=== PATIENT | female | born 1930 | race Caucasian/White ===

== ENCOUNTER 2016-08-28 02:19 | Inpatient (IN) | payer OTHER ==
--- NOTE | 2016-08-28 02:52 | PDOC ---
History of Present Illness - General History Source: Patient <Matteo Deluna - Last Filed: 08/28/16 06:11> - General History Source: Patient Exam Limitations: No Limitations - History of Present Illness Initial Comments: 08/28/16 03:03 The patient is a 85 year old female with significant past medical history of hypertension, bladder CA, and chronic back pain s/p epidural placement 1 week ago who presents to the ED with 2 days of increasing abdominal pain. Patient states her pain is related to her hernia on the right side. During dinner time yesterday, she had an episode of vomiting. Patient also has complaints of nausea , constipation and unable to tolerate liquids and food. Denies diarrhea. Patient reports she also feels pain radiating down her legs that is colicky and sharp in nature. The patient denies fever, chills, cough, SOB, chest pain, and palpitations. Allergies: NKDA Social History: No alcohol, tobacco, or drug use reported. Past Surgical History: hernia repair x2 PCP: Dr. Paco Duff <Sri Horta - Last Filed: 08/28/16 06:26> <Antelmo Fierro - Last Filed: 08/28/16 07:41> - General Chief Complaint: Nausea/Vomiting Stated Complaint: PAIN,VOMITING Time Seen by Provider: 08/28/16 02:32 Past History - Past Medical History Anemia: Yes (mediterrean anemia) Asthma: No Cancer: No Cardiac Disorders: Yes CVA: No COPD: No CHF: No Dementia: No Diabetes: No GI Disorders: No Disorders: Yes HTN: Yes Hypercholesterolemia: No Liver Disease: No Seizures: No Thyroid Disease: No - Surgical History Abdominal Surgery: Yes (HERNIA, bilateral) Appendectomy: No Cardiac Surgery: No Cholecystectomy: No Lung Surgery: No Neurologic Surgery: No Orthopedic Surgery: No - Psycho/Social/Smoking Cessation Hx Suicidal Ideation: No Smoking History: Never smoked Have you smoked in the past 12 months: No If you are a former smoker, when did you quit?: 1970 Hx Alcohol Use: No Drug/Substance Use Hx: No Substance Use Type: None Hx Substance Use Treatment: No <MikieMatteo - Last Filed: 08/28/16 06:11> <Sri Horta - Last Filed: 08/28/16 06:26> <Vaidm,Antelmo - Last Filed: 08/28/16 07:41> - Past Medical History Allergies/Adverse Reactions: Allergies Allergy/AdvReac Type Severity Reaction Status Date / Time No Known Drug Allergies Allergy Verified 08/28/16 02:37 Home Medications: Ambulatory Orders Losartan Potassium [Cozaar -] 50 mg PO DAILY #0 tablet 10/22/13 Metoprolol Succinate [Toprol XL -] 50 mg PO HS 08/14/14 Aspirin [Ecotrin] 81 mg PO DAILY 08/15/14 Furosemide [Lasix -] 20 mg PO DAILY 08/15/14 Review of Systems - Review of Systems Able to Perform ROS?: Yes Comments:: 08/28/16 03:04 CONSTITUTIONAL: +decreased appetite Absent: fever, chills, diaphoresis, generalized weakness, malaise HEENT: Absent: rhinorrhea, nasal congestion, throat pain, throat swelling, difficulty swallowing, mouth swelling, ear pain, eye pain, visual Changes CARDIOVASCULAR: Absent: chest pain, syncope, palpitations, irregular heart rate, lightheadedness , peripheral edema RESPIRATORY: Absent: cough, shortness of breath, dyspnea with exertion, orthopnea, wheezing, stridor, hemoptysis GASTROINTESTINAL: +abdominal pain, nausea, vomiting, constipation Absent: diarrhea, melena, hematochezia GENITOURINARY: Absent: dysuria, frequency, urgency, hesitancy, hematuria, flank pain, genital pain MUSCULOSKELETAL: +pain radiating down the legs Absent: arthralgia, joint swelling SKIN: Absent: rash, itching, pallor NEUROLOGIC: Absent: headache, focal weakness or paresthesias, dizziness, unsteady gait, seizure, mental status changes, bladder or bowel incontinence <Sri Horta - Last Filed: 08/28/16 06:26> *Physical Exam - Vital Signs Last Vital Signs Temp Pulse Resp BP Pulse Ox 97.4 F L 70 18 141/71 97 08/28/16 02:37 08/28/16 02:37 08/28/16 02:37 08/28/16 02:37 08/28/16 02:37 <Matteo Deluna - Last Filed: 08/28/16 06:11> - Vital Signs Last Vital Signs Temp Pulse Resp BP Pulse Ox 97.4 F L 70 18 141/71 97 08/28/16 02:37 08/28/16 02:37 08/28/16 02:37 08/28/16 02:37 08/28/16 02:37 - Physical Exam Comments: 08/28/16 03:04 GENERAL: Well developed, well nourished. Awake and alert. No acute distress. HEENT: Normocephalic, atraumatic. PERRLA, EOMI. No conjunctival pallor. Sclera are non- icteric. Moist mucous membranes. Oropharynx is clear. NECK: Supple. Full ROM. No JVD. Carotid pulses 2+ and symmetric, without bruits. No thyromegaly. No lymphadenopathy. CARDIOVASCULAR: Regular rate and rhythm. No murmurs, rubs, or gallops. Distal pulses are 2+ and symmetric. PULMONARY: No evidence of respiratory distress. Lungs clear to auscultation bilaterally. No wheezing, rales or rhonchi. ABDOMINAL: Slightly firm. Mild tenderness in the right lower quadrant. Distended. No rebound or guarding. + bowel sounds. MUSCULOSKELETAL: Normal range of motion at all joints. No bony deformities or tenderness. No CVA tenderness. EXTREMITIES: No cyanosis. No clubbing. No edema. No calf tenderness. SKIN: Warm and dry. Normal capillary refill. No rashes. No jaundice. NEUROLOGICAL: Alert, awake, appropriate. Cranial nerves 2-12 intact. Moving all extremities. No gross focal neurological deficits. PSYCHIATRIC: Cooperative. Good eye contact. Appropriate mood and affect. <Sri Horta - Last Filed: 08/28/16 06:26> - Vital Signs Last Vital Signs Temp Pulse Resp BP Pulse Ox 97.4 F L 60 18 105/58 97 08/28/16 02:37 08/28/16 06:32 08/28/16 06:32 08/28/16 06:32 08/28/16 06:32 <Antelmo Fierro - Last Filed: 08/28/16 07:41> Heart Score/ECG Review - ECG Impressions Comment:: 08/28/16 06:27 NSR @60bpm LBBB Abnormal ECG <Sri Horta - Last Filed: 08/28/16 06:26> ED Treatment Course - LABORATORY CBC & Chemistry Diagram: 08/28/16 03:11 08/28/16 03:11 <SinisterraMatteo - Last Filed: 08/28/16 06:11> - LABORATORY CBC & Chemistry Diagram: 08/28/16 03:11 08/28/16 03:11 - RADIOLOGY Radiograph Interpretation: 08/28/16 06:05 EXAM: CT abdomen and pelvis with contrast Reviewed by Imaging ham boner: IMPRESSION: Evaluation is limited due to paucity of intraabdominal and pelvic fat. Nonspecific fluid level seen within the small bowel. There is an apparent transition point in the left lower quadrant ( axial image 87. Air is seen in the colon. These findings may reflect partial small bowel traction.There is no pneumatosis intestinalis, wall thickening or portal venous gas. Diverticulosis. No evidence of diverticulitis. Multichamber cardiomegaly. Coronary calcifications. No pericardial effusion. Mitral annular and aortic valve calcifications. Right hepatic simple cyst. Nonspecific hepatosplenomegaly. Gallbladder is distended. No calcified gallstones visualized. Mild prominence of the common bile duct similar to prior study. Stable bilateral renal cysts. No enhancing renal mass. No hydronephrosis. Adrenal glands are unremarkable. Stable thoracolumbar S-shaped scoliosis. [id number] arthrosis of the spine. Chronic arthrosis of the SI joints and hip joints. Osteopenia. Stable mild compression deformity of T11 vertebral body. <Sri Horta - Last Filed: 08/28/16 06:26> - LABORATORY CBC & Chemistry Diagram: 08/28/16 03:11 08/28/16 03:11 - ADDITIONAL ORDERS Additional order review: Laboratory Results 08/28/16 08/28/16 08/28/16 04:28 03:11 03:11 INR Sodium 141 Potassium 3.8 Chloride 102 Carbon Dioxide 29 Anion Gap 10 BUN 42 H D Creatinine 0.8 D Creat Clearance w eGFR > 60 Random Glucose 106 D Calcium 9.3 Magnesium 2.6 H Total Bilirubin 1.0 D AST 23 D ALT 22 D Alkaline Phosphatase 108 D Total Protein 8.0 Albumin 4.3 Lipase 195 Urine Color Yellow Urine Appearance Clear Urine pH 5.0 D Ur Specific [place] 1.019 Urine Protein 1+ H Urine Glucose (UA) Negative Urine Ketones Trace H Urine Blood Negative Urine Nitrite Negative Urine Bilirubin Negative Urine Urobilinogen Negative Ur Leukocyte Esterase Negative Urine RBC 1 Urine WBC 1 Ur Epithelial Cells Rare Hyaline Casts 47 Urine Mucus Few Blood Type O POSITIVE Antibody Screen Negative 08/28/16 03:11 INR 1.09 Sodium Potassium Chloride Carbon Dioxide Anion Gap BUN Creatinine Creat Clearance w eGFR Random Glucose Calcium Magnesium Total Bilirubin AST ALT Alkaline Phosphatase Total Protein Albumin Lipase Urine Color Urine Appearance Urine pH Ur Specific [place] Urine Protein Urine Glucose (UA) Urine Ketones Urine Blood Urine Nitrite Urine Bilirubin Urine Urobilinogen Ur Leukocyte Esterase Urine RBC Urine WBC Ur Epithelial Cells Hyaline Casts Urine Mucus Blood Type Antibody Screen 08/28/16 03:11 RBC 4.30 MCV 68.0 L MCHC 30.8 L RDW 21.3 H D MPV 9.7 Neutrophils % 75.0 Lymphocytes % 10.0 D Monocytes % 11.0 H - Medications Given in the ED: ED Medications Discontinued Medications Generic Name Dose Route Start Last Admin Trade Name Cosmo PRN Reason Stop Dose Admin Morphine Sulfate 2 mg 08/28/16 02:57 08/28/16 03:12 Morphine Injection - IVPUSH 08/28/16 02:58 2 mg ONCE ONE Administration Ondansetron HCl 4 mg 08/28/16 02:57 08/28/16 03:12 Zofran Injection IVPUSH 08/28/16 02:58 4 mg ONCE STA Administration <Antelmo Fierro - Last Filed: 08/28/16 07:41> Medical Decision Making - Medical Decision Making 08/28/16 06:11 Dr. Deluna: The scribe's documentation has been prepared under my direction and personally reviewed by me in its entirery. I confirm that the note above accurately reflects all work, treatment, procedures, and medical decision making performed by me. Pt found to have an SBO on Ct scan. Pt not actively vomiting at this time. However, pt will have NGT placed to decompress stomach and be admitted to [facility]. Spoke to Dr. Duff will admitt <Matteo Deluna - Last Filed: 08/28/16 06:11> - Medical Decision Making 08/28/16 06:[address] Paco Duff (via answering service) at 6:07 and patient's case was discussed. <Sir Horta - Last Filed: 08/28/16 06:26> - Medical Decision Making 08/28/16 07:41 The pts post NGT xray reveals tip at the EG junction. The tube was advanced 10cm with output of bilious fluid. <Antelmo Fierro - Last Filed: 08/28/16 07:41> *DC/Admit/Observation/Transfer - Discharge Dispostion Admit: Yes <Matteo Deluna - Last Filed: 08/28/16 06:11> - Attestations Scribe Attestion: 08/28/16 03:04 Documentation prepared by Sri Horta, acting as medical and health services manager for Matteo Deluna MD <Sri Horta - Last Filed: 08/28/16 06:26> <Antelmo Fierro - Last Filed: 08/28/16 07:41> Diagnosis at time of Disposition: SBO (small bowel obstruction) - Referrals
[2016-08-28] MEDS ORDERED: ONDANSETRON 4 MG/2 ML VIAL IVPUSH STA (02:57)
[2016-08-28] MEDS ORDERED: morphine CARPU-JECT 2 MG/1 ML DISP.SYRIN IVPUSH ONE (02:57)
[2016-08-28] MEDS ORDERED: morphine CARPU-JECT 2 MG/1 ML DISP.SYRIN ONE (03:00)
[2016-08-28] MEDS ORDERED: ONDANSETRON 4 MG/2 ML VIAL ONE (03:00)
[2016-08-28 03:21] LABS: MCH 20.9 pg (25.7-33.7); MCHC 30.8 g/dl (32.0-36.0); MEAN PLT VOLUME 9.7 fl (7.5-11.1); PLATELET COUNT 283 K/MM3 (134-434); RDW 21.3 % (11.6-15.6); WHITE BLOOD COUNT 13.1 K/mm3 (4.0-10.0)
[2016-08-28] MEDS: SODIUM CHLORIDE 1,000 ML IV SCH ×2 (03:29→14:24)
[2016-08-28 03:36] LABS: INR 1.09 (0.82-1.09)
[2016-08-28 03:44] LABS: ALBUMIN 4.3 g/dl (3.4-5.0); ANION GAP 10 (8-16); CALCIUM 9.3 mg/dL (8.5-10.1); CO2 29 mmol/L (21-32); CREATININE 0.8 mg/dL (0.55-1.02); GLUCOSE,RANDOM 106 mg/dL (74-106); MAGNESIUM 2.6 mg/dL (1.8-2.4); SGOT/AST 23 U/L (15-37); SGPT/ALT 22 U/L (12-78)
[2016-08-28 03:45] LABS: ALK PHOS 108 U/L (45-117)
[2016-08-28 04:40] LABS: URINE APPEARANCE CLEAR; URINE BILIRUBIN NEGATIVE (NEGATIVE); URINE BLOOD NEGATIVE (NEGATIVE); URINE COLOR YELLOW; URINE GLUCOSE (UA) NEGATIVE (NEGATIVE); URINE KETONE TRACE (NEGATIVE); URINE LEUK ESTERASE NEGATIVE (NEGATIVE); URINE NITRITE NEGATIVE (NEGATIVE); URINE UROBILINOGEN NEGATIVE E.U./dl (0.2-1.0)
[2016-08-28 04:51] LABS: URINE PROTEIN 1+ (NEGATIVE)
[2016-08-28 04:55] LABS: URINE HYALINE CAST 47 /lpf; URINE MUCUS FEW; URINE RBC 1 /hpf (0-3); URINE WBC 1 /hpf (3-5)
[2016-08-28 05:22] LABS: ANISOCYTOSIS 2+; HYPOCHROMIA 2+; MICROCYTOSIS 1+; PLATELET ESTIMATE ADEQUATE (NORMAL); POIKILOCYTOSIS 1+; POLYCHROMASIA 1+; TARGET CELLS 2+; TEAR DROP CELLS 1+
[2016-08-28] MEDS ORDERED: LIDOCAINE HCL 2% JELLY 10 ML CARTRIDGE ONE (06:40)
[2016-08-28] MEDS ORDERED: morphine CARPU-JECT 2 MG/1 ML DISP.SYRIN IVPUSH PRN (07:19)
[2016-08-28] MEDS ORDERED: ONDANSETRON 4 MG/2 ML VIAL IVPB PRN (07:19)
[2016-08-28 08:18] VITALS: BMI 18.1
--- NOTE | 2016-08-28 10:06 | CONSULT ---
- Consultation REQUESTING PROVIDER: Mikie RENTERIA CONSULT REQUEST: We have been asked to surgically evaluate this patient for possible SBO PCP:Paco Duff HISTORY OF PRESENT ILLNESS:85 y/o female presented w/ 1 day of nausae and ? vomiting and absominal pain; shehas a h/o ? BIH repair in the past and a known right obturator hernia; NOC. PMHx: bladder ca ; hypertension PSHx: as above Home Medications Medication Instructions Recorded Losartan Potassium [Cozaar -] 50 mg PO DAILY #0 tablet 10/22/13 Metoprolol Succinate [Toprol XL -] 50 mg PO HS 08/14/14 Aspirin [Ecotrin] 81 mg PO DAILY 08/15/14 Furosemide [Lasix -] 20 mg PO DAILY 08/15/14 Allergies Allergy/AdvReac Type Severity Reaction Status Date / Time No Known Drug Allergies Allergy Verified 08/28/16 02:37 PHYSICAL EXAM: GENERAL: Awake, alert, and fully oriented, in no acute distress. HEAD: Normal with no signs of trauma. EYES:sclera anicteric, conjunctiva clear. NECK: Normal ROM, supple without lymphadenopathy, or masses. ABDOMEN: Soft, nontender, distended and tympanitic high pitched bowel sounds, no guarding, no rebound, no masses. No organomegaly. MUSCULOSKELETAL: Normal ROM at all joints. No bony deformities or tenderness. No CVA tenderness. UPPER EXTREMITIES: 2+ pulses, warm, well-perfused. No cyanosis. Cap refill <2 seconds. No peripheral edema. LOWER EXTREMITIES: 2+ pulses, warm, well-perfused. No calf tenderness. No peripheral edema. NEUROLOGICAL: Normal speech, gait not observed. PSYCH: Cooperative. Good eye contact. Appropriate mood and affect. SKIN: Warm, dry, normal turgor, no rashes or lesions noted. Vital Signs Temperature 97.8 F 08/28/16 08:00 Pulse Rate 72 08/28/16 08:00 Respiratory Rate 18 08/28/16 08:00 Blood Pressure 130/70 08/28/16 08:00 O2 Sat by Pulse Oximetry (%) 97 08/28/16 06:32 Lab Results WBC 13.1 K/mm3 (4.0-10.0) H D 08/28/16 03:11 RBC 4.30 M/mm3 (3.60-5.2) 08/28/16 03:11 Hgb 9.0 GM/dL (10.7-15.3) L 08/28/16 03:11 Hct 29.3 % (32.4-45.2) L 08/28/16 03:11 MCV 68.0 fl (80-96) L 08/28/16 03:11 MCHC 30.8 g/dl (32.0-36.0) L 08/28/16 03:11 RDW 21.3 % (11.6-15.6) H D 08/28/16 03:11 Plt Count 283 K/MM3 (134-434) D 08/28/16 03:11 Sodium 141 mmol/L (136-145) 08/28/16 03:11 Potassium 3.8 mmol/L (3.5-5.1) 08/28/16 03:11 Chloride 102 mmol/L (98-107) 08/28/16 03:11 Carbon Dioxide 29 mmol/L (21-32) 08/28/16 03:11 Anion Gap 10 (8-16) 08/28/16 03:11 BUN 42 mg/dL (7-18) H D 08/28/16 03:11 Creatinine 0.8 mg/dL (0.55-1.02) D 08/28/16 03:11 Random Glucose 106 mg/dL (74-106) D 08/28/16 03:11 Calcium 9.3 mg/dL (8.5-10.1) 08/28/16 03:11 Blood Type O POSITIVE 08/28/16 03:11 Antibody Screen Negative 08/28/16 03:11 INR 1.09 (0.82-1.09) 08/28/16 03:11 CT a/p: partial SBO pending official report IMP: SBO; partial PLAN: NPO/IVF/NGT; follow up flat and upright AXR 08/29/16. Kojo Marquez MD FACS Visit type - Case Type Case Type: ED Admission - Emergency Emergency Visit: Yes ED Registration Date: 08/28/16 Care time: The patient presented to the Emergency Department on the above date and was hospitalized for further evaluation of their emergent condition. - New patient This patient is new to me today: Yes Date on this admission: 08/28/16
[2016-08-28] MEDS: HEPARIN NA (PORCINE) 5,000 UNITS/ML 1ML VIAL SQ SCH ×2 (10:31→21:11)
--- NOTE | 2016-08-28 12:18 | EKG ---
Test Reason : Blood Pressure : / mmHG Vent. Rate : 060 BPM Atrial Rate : 060 BPM P-R Int : 206 ms QRS Dur : 134 ms QT Int : 452 ms P-R-T Axes : 069 -01 181 degrees QTc Int : 452 ms POOR DATA QUALITY, INTERPRETATION MAY BE ADVERSELY AFFECTED NORMAL SINUS RHYTHM LEFT BUNDLE BRANCH BLOCK ABNORMAL ECG WHEN COMPARED WITH ECG OF 15-AUG-2014 10:44, PREMATURE VENTRICULAR COMPLEXES ARE NO LONGER PRESENT QT HAS SHORTENED Confirmed by PAN WELSH MD ([id number]) on 08/28/2016 12:18:15 PM Referred By: Confirmed By:PAN WELSH MD
--- NOTE | 2016-08-28 14:33 | HP ---
PCP: Paco Duff CHIEF COMPLAINT: Abdominal pain HISTORY OF PRESENT ILLNESS: This is an 85-year-old woman who presented to the ER this morning complaining of abdominal pain that started two nights ago. The pain was located in the RLQ at the site of a hernia. She says she gets occasional pain associated with this hernia. This pain has been continuous and worsening. She thinks her last bowel movement was 4 days ago. She took a laxative and began vomiting. PAST MEDICAL HISTORY Hypertension Bladder cancer Chronic back pain PAST SURGICAL HISTORY Left inguinal hernia repair 2005 Right inguinal hernia repair 1995, 2005 Allergies No Known Drug Allergies Allergy (Verified 08/28/16 02:37) HOME MEDICATIONS 3 Medication Instructions Recorded Losartan Potassium [Cozaar -] 50 mg PO DAILY #0 tablet 10/22/13 Metoprolol Succinate [Toprol XL -] 50 mg PO HS 08/14/14 Aspirin [Ecotrin] 81 mg PO DAILY 08/15/14 Furosemide [Lasix -] 20 mg PO DAILY 08/15/14 Social History: Smoking: Never smoked Alcohol: Denies Drugs: Denies Recent Travel: No Family History: Non-contributory REVIEW OF SYSTEMS CONSTITUTIONAL: Present: chills. Absent: fever, diaphoresis, generalized weakness, malaise, loss of appetite, weight change HEENT: Absent: rhinorrhea, nasal congestion, throat pain, throat swelling, difficulty swallowing, mouth swelling, ear pain, eye pain, visual changes CARDIOVASCULAR: Absent: chest pain, syncope, palpitations, lightheadedness, peripheral edema RESPIRATORY: Absent: cough, shortness of breath, dyspnea with exertion, orthopnea, wheezing, stridor, hemoptysis GASTROINTESTINAL: Present: abdominal pain, abdominal distention, nausea, vomiting, constipation. Absent: diarrhea, melena, hematochezia GENITOURINARY: Absent: dysuria, frequency, urgency, hesitancy, hematuria, flank pain MUSCULOSKELETAL: Present: back pain, right leg pain. Absent: joint swelling, neck pain SKIN: Absent: rash, itching, pallor HEMATOLOGIC/IMMUNOLOGIC: Absent: easy bleeding, easy bruising, lymphadenopathy, frequent infections ENDOCRINE: Absent: unexplained weight gain, unexplained weight loss, heat intolerance, cold intolerance NEUROLOGIC: Absent: headache, focal weakness, paresthesias, dizziness, unsteady gait, seizure, mental status changes, bladder or bowel incontinence PSYCHIATRIC: Absent: anxiety, depression, suicidal or homicidal ideation, hallucinations. PHYSICAL EXAMINATION Vital Signs - 24 hr 08/28/16 08/28/16 06:32 08:00 Temperature 97.8 F Pulse Rate 72 Pulse Rate [ 60 Radial] Respiratory 18 18 Rate Blood Pressure 130/70 Blood Pressure 105/58 [Left Arm] O2 Sat by Pulse 97 Oximetry (%) GENERAL: Awake, alert, and fully oriented, in no acute distress. NG tube in place. HEAD: Normal with no signs of trauma. EYES: Pupils equal, round and reactive to light, extraocular movements intact, sclera anicteric, conjunctiva clear. No lid lag. EARS, NOSE, THROAT: Ears normal, nares patent, oropharynx clear without exudates. Moist mucous membranes. NECK: Normal range of motion, supple without lymphadenopathy, JVD, or masses. LUNGS: Breath sounds equal, clear to auscultation bilaterally. No wheezes, and no crackles. No accessory muscle use. HEART: Regular rate and rhythm, normal S1 and S2 without murmur, rub or gallop. ABDOMEN: Soft, nontender, mildly distended, hypoactive high-pitched bowel sounds , no guarding, no rebound. No hepatomegaly or splenomegaly. MUSCULOSKELETAL: Normal range of motion at all joints. No bony deformities or tenderness. No CVA tenderness. UPPER EXTREMITIES: 2+ pulses, warm, well-perfused. No cyanosis. No clubbing. No peripheral edema. LOWER EXTREMITIES: 1+ pulses, warm, well-perfused. No calf tenderness. No peripheral edema. NEUROLOGICAL: Cranial nerves II-XII intact. Normal speech. Gait not observed. PSYCHIATRIC: Cooperative. Good eye contact. Appropriate mood and affect. SKIN: Warm, dry, normal turgor, no rashes or lesions noted, normal capillary refill. Laboratory Tests 08/28/16 08/28/16 08/28/16 03:11 03:11 03:11 WBC 13.1 H D RBC 4.30 Hgb 9.0 L Hct 29.3 L MCV 68.0 L MCHC 30.8 L RDW 21.3 H D Plt Count 283 D MPV 9.7 Neutrophils % 75.0 Lymphocytes % 10.0 D Monocytes % 11.0 H Band Neutrophils 3.0 D Myelocytes 1 Nucleated RBCs 1 H Differential Comment Manual diff done Platelet Estimate Adequate Polychromasia 1+ Hypochromic-Microcytic 2+ Poikilocytosis 1+ Basophilic Stippling 1+ Anisocytosis 2+ Microcytosis 1+ Target Cells 2+ Tear Drop Cells 1+ Morphology Comment Slide scanned INR 1.09 Sodium 141 Potassium 3.8 Chloride 102 Carbon Dioxide 29 Anion Gap 10 BUN 42 H D Creatinine 0.8 D Creat Clearance w eGFR > 60 Random Glucose 106 D Calcium 9.3 Magnesium 2.6 H Total Bilirubin 1.0 D AST 23 D ALT 22 D Alkaline Phosphatase 108 D Total Protein 8.0 Albumin 4.3 Lipase 195 Urine Color Urine Appearance Urine pH Ur Specific [place] Urine Protein Urine Glucose (UA) Urine Ketones Urine Blood Urine Nitrite Urine Bilirubin Urine Urobilinogen Ur Leukocyte Esterase Urine RBC Urine WBC Ur Epithelial Cells Hyaline Casts Urine Mucus Blood Type Antibody Screen 08/28/16 08/28/16 03:11 04:28 WBC RBC Hgb Hct MCV MCHC RDW Plt Count MPV Neutrophils % Lymphocytes % Monocytes % Band Neutrophils Myelocytes Nucleated RBCs Differential Comment Platelet Estimate Polychromasia Hypochromic-Microcytic Poikilocytosis Basophilic Stippling Anisocytosis Microcytosis Target Cells Tear Drop Cells Morphology Comment INR Sodium Potassium Chloride Carbon Dioxide Anion Gap BUN Creatinine Creat Clearance w eGFR Random Glucose Calcium Magnesium Total Bilirubin AST ALT Alkaline Phosphatase Total Protein Albumin Lipase Urine Color Yellow Urine Appearance Clear Urine pH 5.0 D Ur Specific [place] 1.019 Urine Protein 1+ H Urine Glucose (UA) Negative Urine Ketones Trace H Urine Blood Negative Urine Nitrite Negative Urine Bilirubin Negative Urine Urobilinogen Negative Ur Leukocyte Esterase Negative Urine RBC 1 Urine WBC 1 Ur Epithelial Cells Rare Hyaline Casts 47 Urine Mucus Few Blood Type O POSITIVE Antibody Screen Negative Chest x-ray #1: 1 cm nodular density overlying left mid lung. Possible left rib fracture. Cardiomegaly. Dextroscoliosis of thoracic spine. Chest x-ray #2: NGT with tip at GE junction. Cardiomegaly. Left midlung granuloma. Dextroscoliosis of thoracic spine. Levoscoliosis of lumboscaral spine. EKG: Sinus rhythm, rate 60. RBBB. CT abdomen/pelvis: Evaluation is limited due to paucity of intraabdominal and pelvic fat. Nonspecific fluid level seen within the small bowel. There is an apparent transition point in the left lower quadrant (axial image 87. Air is seen in the colon. These findings may reflect partial small bowel traction.There is no pneumatosis intestinalis, wall thickening or portal venous gas. Diverticulosis. No evidence of diverticulitis. Multichamber cardiomegaly. Coronary calcifications. No pericardial effusion. Mitral annular and aortic valve calcifications. Right hepatic simple cyst. Nonspecific hepatosplenomegaly. Gallbladder is distended. No calcified gallstones visualized. Mild prominence of the common bile duct similar to prior study. Stable bilateral renal cysts. No enhancing renal mass. No hydronephrosis. Adrenal glands are unremarkable. Stable thoracolumbar S-shaped scoliosis. [id number] arthrosis of the spine. Chronic arthrosis of the SI joints and hip joints. Osteopenia. Stable mild compression deformity of T11 vertebral body. ASSESSMENT/PLAN: This is an 85-year-old woman with a history of bilateral inguinal hernia repairs , HTN, chronic back pain, bladder cancer who comes to the ER with worsening abdominal pain, nausea and vomiting for 2 days. She is afebrile, with WBC 13.1, Hgb 9.0, BUN 42, creatinine 0.8. CT abd/pelvis shows partial SBO. She is being admitted for treatment of an emergent condition. 1. Partial SBO - Surgery consult appreciated - Continue NG tube, NPO, IV fluid, Zofran as needed for nausea - Abdominal x-rays in AM 2. Dehydration - IV fluid - Hold Lasix - Monitor BUN, creatinine 3. Leukocytosis - Likely reactive and secondary to dehydration - Monitor WBC 4. 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 Hypertension - Hold Cozaar, Toprol XL, Lasix secondary to low normal BP, dehydration, NG tube - Monitor BP 5. Chronic back pain
--- NOTE | 2016-08-28 15:15 | CONSULT ---
Consult Consult Specialty:: infectious diseases Referred by:: Reason for Consultation:: leukocytosis - History of Present Illness Chief Complaint: abd pain History of Present Illness: 85-year-old woman who got admitted complaining of abdominal pain that started two nights ago. The pain was located in the RLQ at the site of a hernia. She says she gets occasional pain associated with this hernia. This pain has been continuous and worsening. She thinks her last bowel movement was 4 days ago. She took a laxative and began vomiting. patient mentions that she was not able to tolerate anything by mouth and that she was having abd pain which were radiating down her legs currently patient says she feels better and has had some flatus has a ng tube placed with minimal drainage - History Source History Provided By: Patient, Medical Record Limitations to Obtaining History: Other - Past Medical History Cardio/Vascular: Yes: HTN, Other (ASHD) ...: No Endocrine: Yes: Osteopenia - Alcohol/Substance Use Hx Alcohol Use: No - Smoking History Smoking history: Never smoked Have you smoked in the past 12 months: No If you are a former smoker, when did you quit?: 1970 Home Medications - Allergies Allergies/Adverse Reactions: Allergies Allergy/AdvReac Type Severity Reaction Status Date / Time No Known Drug Allergies Allergy Verified 08/28/16 02:37 - Home Medications Home Medications: Ambulatory Orders Losartan Potassium [Cozaar -] 50 mg PO DAILY #0 tablet 10/22/13 Metoprolol Succinate [Toprol XL -] 50 mg PO HS 08/14/14 Aspirin [Ecotrin] 81 mg PO DAILY 08/15/14 Furosemide [Lasix -] 20 mg PO DAILY 08/15/14 Review of Systems - Review of Systems Constitutional: reports: Weakness Eyes: reports: No Symptoms HENT: reports: No Symptoms Neck: reports: No Symptoms Cardiovascular: reports: No Symptoms Respiratory: reports: No Symptoms Gastrointestinal: reports: Abdominal Pain, Nausea, Other Musculoskeletal: reports: No Symptoms Integumentary: reports: No Symptoms Neurological: reports: No Symptoms Endocrine: reports: No Symptoms Hematology/Lymphatic: reports: No Symptoms Psychiatric: reports: No Symptoms Physical Exam Vital Signs: Vital Signs Temperature 98.7 F 08/28/16 14:26 Pulse Rate 65 08/28/16 14:26 Respiratory Rate 17 08/28/16 14:26 Blood Pressure 121/57 08/28/16 14:26 O2 Sat by Pulse Oximetry (%) 97 08/28/16 06:32 Constitutional: Yes: No Distress, Calm, Thin, Other Eyes: Yes: Conjunctiva Clear HENT: Yes: Atraumatic Neck: Yes: Supple, Trachea Midline Cardiovascular: Yes: Regular Rate and Rhythm Respiratory: Yes: Regular, CTA Bilaterally Gastrointestinal: Yes: Soft, Hypoactive Bowel Sounds, Other (ng tube in place) Musculoskeletal: Yes: WNL Extremities: Yes: WNL Neurological: Yes: Alert, Oriented Psychiatric: Yes: Alert Imaging - Results Chest X-ray: Report Reviewed, Image Reviewed Cat Scan: Image Reviewed (await for official result) Assessment/Plan patient evaluated and ct scan looked at very interesting ct scan showing partial obstruction but the lay out is interesting 1. Partial SBO 2. Dehydration 3. Leukocytosis 4. Anemia secondary to chronic illness 5. Hypertension 6 Chronic back pain plan no abx at this time hydration will reevaluate if patient spikes fever or does not start resolving will then initiate abx close monitoring
[2016-08-29 08:21] LABS: MCHC 30.6 g/dl (32.0-36.0); MEAN CELL VOLUME 68.6 fl (80-96); MEAN PLT VOLUME 9.2 fl (7.5-11.1); PLATELET COUNT 143 K/MM3 (134-434); RDW 20.9 % (11.6-15.6); WHITE BLOOD COUNT 6.1 K/mm3 (4.0-10.0)
[2016-08-29 08:29] LABS: ALK PHOS 77 U/L (45-117); ANION GAP 6 (8-16); BILIRUBIN,TOTAL 1.1 mg/dL (0.2-1.0); CO2 30 mmol/L (21-32); CREATININE 0.5 mg/dL (0.55-1.02); GLUCOSE,RANDOM 75 mg/dL (74-106); MAGNESIUM 2.1 mg/dL (1.8-2.4); SGOT/AST 13 U/L (15-37); SGPT/ALT 14 U/L (12-78); TOT PROT 5.8 g/dl (6.4-8.2)
[2016-08-29] MEDS: HEPARIN NA (PORCINE) 5,000 UNITS/ML 1ML VIAL SQ SCH (09:15)
[2016-08-29 11:27] LABS: ANISOCYTOSIS 1+; HYPOCHROMIA 2+; MICROCYTOSIS 1+; OVALOCYTES 1+; PLATELET COMMENT2 NO CLUMPING NOTED; PLATELET ESTIMATE ADEQUATE (NORMAL); POIKILOCYTOSIS 1+; POLYCHROMASIA 1+; TARGET CELLS 1+; TEAR DROP CELLS 1+
--- NOTE | 2016-08-29 11:41 | PN ---
Progress Note (short form) - Note Progress Note: Attending Surgeon No flatus/no BM; feels better. VSS AF abdomen-soft; non tender; obese and non tympanitic NGT 150 cc IMP:PSBO PLAN: Continue present tx; f/u obstructive series today(ordered) Kojo Marquez MD FACS
--- NOTE | 2016-08-29 11:57 | PN ---
Physical Exam: SUBJECTIVE: Patient seen and examined. Denies any chest pain, shortness of breath. OBJECTIVE: NGT with dark brown drainage hypoactive bowel sounds, abdomen soft Vital Signs Period Temp Pulse Resp BP Sys/Emerson Pulse Ox Last 24 Hr 97.7 F-98.7 F 60-74 17-18 121-147/53-73 98 GENERAL: The patient is awake, alert, and fully oriented, in no acute distress. HEAD: Normal with no signs of trauma. EYES: PERRL, extraocular movements intact, sclera anicteric, conjunctiva clear. No ptosis. ENT: Ears normal, nares patent, oropharynx clear without exudates, moist mucous membranes. NECK: Trachea midline, full range of motion, supple. LUNGS: Breath sounds equal, clear to auscultation bilaterally, no wheezes, no crackles, no accessory muscle use. HEART: Regular rate and rhythm. ABDOMEN: hypoactive bowel sounds, no guarding, NGT tube in place EXTREMITIES: 2+ pulses, warm, well-perfused, no edema. NEUROLOGICAL: Normal speech, gait not observed. PSYCH: Normal mood, normal affect. SKIN: Warm, dry, normal turgor, no rashes or lesions noted Laboratory Results - last 24 hr 08/29/16 08/29/16 06:00 06:00 WBC 6.1 D RBC 3.48 L Hgb 7.3 L D Hct 23.9 L D MCV 68.6 L MCHC 30.6 L RDW 20.9 H Plt Count 143 D MPV 9.2 Neutrophils % 74.0 Lymphocytes % 18.0 D Monocytes % 6.0 Band Neutrophils 2.0 D Platelet Estimate Adequate Platelet Comment No clumping noted Polychromasia 1+ Hypochromic-Microcytic 2+ Poikilocytosis 1+ Basophilic Stippling 2+ Anisocytosis 1+ Microcytosis 1+ Target Cells 1+ Tear Drop Cells 1+ Ovalocytes 1+ Sodium 143 Potassium 3.9 Chloride 107 Carbon Dioxide 30 Anion Gap 6 L BUN 21 H D Creatinine 0.5 L D Creat Clearance w eGFR > 60 Random Glucose 75 D Calcium 8.0 L Magnesium 2.1 Total Bilirubin 1.1 H AST 13 L D ALT 14 D Alkaline Phosphatase 77 D B-Natriuretic Peptide 2484.92 H Total Protein 5.8 L D Albumin 3.0 L D Active Medications Generic Name Dose Route Start Last Admin Trade Name Freq PRN Reason Stop Dose Admin Heparin Sodium (Porcine) 5,000 unit 08/28/16 10:00 08/29/16 09:15 Heparin - SQ 5,000 unit BID [facility] Administration Sodium Chloride 1,000 mls @ 75 mls/hr 08/28/16 03:00 08/28/16 14:24 Normal Saline - IV 75 mls/hr ASDIR [facility] Administration Morphine Sulfate 1 mg 08/28/16 07:19 Morphine Injection - IVPUSH Q4H PRN PAIN Ondansetron HCl 4 mg 08/28/16 07:19 Zofran Injection IVPB Q6H PRN NAUSEA ASSESSMENT/PLAN: Patient is a 85 year old female with significant past medical history of hypertension, bladder CA, and chronic back pain s/p epidural placement 1 week ago who presents to the ED with 2 days of increasing abdominal pain. Patient states her pain is related to her hernia on the right side with an episode of vomiting and associated nausea and constipation. She was unable to tolerate liquids and foods. She denied diarrhea. 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 Abdominal xray 08/29/2016 - no obvious obstruction - all barium has extended to right colon GI: Partial SBO - resolving On NGT with apx 200cc of brown/green output Abdominal xray 08/29 shows no obvious obstruction - all barium has extended to right colon Advance diet as per surgery NPO ID: Leukocytosis - resolved WBC 13.1 > 6.1 Monitor WBC, remains afebrile and hemodynamically stable Monitor Hematology: Anemia - likely chronic Monitor h/h, transfuse if falls below <7 Will hold heparin until h/h more stable Monitor vitals Cardiology: Hypertension - chronic BP @ goal, all PO meds on hold secondary to NPO F.E.N. Fluids: NS @ 75 Electrolytes: monitor daily Nutrition: NPO Prophylaxis: GI: NPO, Protonix IVPB DVT: SCDs bilaterally Visit type - Emergency Visit Emergency Visit: Yes ED Registration Date: 08/28/16 Care time: The patient presented to the Emergency Department on the above date and was hospitalized for further evaluation of their emergent condition. - New Patient This patient is new to me today: Yes Date on this admission: 08/29/16 - Critical Care Critical Care patient: No - Discharge Referral Referred to [facility] Med P.C.: No
--- NOTE | 2016-08-29 15:27 | PN ---
Progress Note, Physician History of Present Illness: stable no new issues f/u series today - Current Medication List Current Medications: Active Medications Heparin Sodium (Porcine) (Heparin -) 5,000 unit SQ BID [facility] Last Admin: 08/29/16 09:15 Dose: 5,000 unit Sodium Chloride (Normal Saline -) 1,000 mls @ 75 mls/hr IV ASDIR [facility] Last Admin: 08/28/16 14:24 Dose: 75 mls/hr Morphine Sulfate (Morphine Injection -) 1 mg IVPUSH Q4H PRN PRN Reason: PAIN Ondansetron HCl (Zofran Injection) 4 mg IVPB Q6H PRN PRN Reason: NAUSEA - Objective Vital Signs: Vital Signs Temperature 98.1 F 08/29/16 14:48 Pulse Rate 63 08/29/16 14:48 Respiratory Rate 18 08/29/16 14:48 Blood Pressure 125/59 08/29/16 14:48 O2 Sat by Pulse Oximetry (%) 98 08/29/16 09:00 Constitutional: Yes: No Distress, Calm, Thin Cardiovascular: Yes: Regular Rate and Rhythm Respiratory: Yes: Regular, CTA Bilaterally Gastrointestinal: Yes: Soft, Hypoactive Bowel Sounds, Other Musculoskeletal: Yes: WNL Extremities: Yes: WNL Neurological: Yes: Alert, Oriented Psychiatric: Yes: Alert Labs: CBC, BMP 08/29/16 06:00 08/29/16 06:00 INR, PTT INR 1.09 (0.82-1.09) 08/28/16 03:11 Assessment/Plan 1. Partial SBO 2. Dehydration 3. Leukocytosis 4. Anemia secondary to chronic illness 5. Hypertension 6 Chronic back pain plan continue with current mgmt await the series wbc normal
[2016-08-29] MEDS ORDERED: PANTOPRAZOLE SODIUM 100 ML IVPB ONE ×2 (18:27→21:45)
[2016-08-29] MEDS: SODIUM CHLORIDE 1,000 ML IV SCH (20:33)
[2016-08-30] MEDS: SODIUM CHLORIDE 1,000 ML IV SCH ×3 (07:26→23:06)
--- NOTE | 2016-08-30 08:46 | PN ---
Progress Note (short form) - Note Progress Note: Pt without any nausea or emesis, her ngt fell out in the early am. She has been passing flatus. No bowel movements Vital Signs Period Temp Pulse Resp BP Sys/Emerson Pulse Ox Last 24 Hr 97.6 F-98.1 F 63-78 18-18 125-148/59-79 97-98 PE: GEN: appears comfortable ABD: soft, non-distended, non-tender A/P: 85 yo female with resolving SBO now with bowel function, begin clears and advance as tolerated D/w Dr. Marquez <Carol Ann Stapleton - Last Filed: 08/30/16 08:46> - Note Progress Note: Attending Surgeon Seen and evaluated; concur w/ a/p as outlined above. <Kojo Marquez - Last Filed: 08/30/16 09:17>
[2016-08-30 09:35] LABS: MCHC 30.2 g/dl (32.0-36.0); MEAN CELL VOLUME 69.3 fl (80-96); MEAN PLT VOLUME 9.4 fl (7.5-11.1); PLATELET COUNT 152 K/MM3 (134-434); RDW 20.8 % (11.6-15.6)
[2016-08-30 10:04] LABS: CALCIUM 8.7 mg/dL (8.5-10.1)
[2016-08-30 10:10] LABS: ALBUMIN 3.3 g/dl (3.4-5.0); ALK PHOS 79 U/L (45-117); ANION GAP 12 (8-16); BILIRUBIN,TOTAL 1.2 mg/dL (0.2-1.0); CO2 24 mmol/L (21-32); CREATININE 0.4 mg/dL (0.55-1.02); GLUCOSE,RANDOM 51 mg/dL (74-106); SGOT/AST 13 U/L (15-37); SGPT/ALT 17 U/L (12-78); TOT PROT 6.3 g/dl (6.4-8.2)
[2016-08-30] MEDS: PANTOPRAZOLE SODIUM 100 ML IVPB SCH (10:33)
[2016-08-30 11:10] LABS: ANISOCYTOSIS 2+; HYPOCHROMIA 2+; MICROCYTOSIS 1+; OVALOCYTES 1+; PLATELET COMMENT2 NO CLUMPING NOTED; PLATELET ESTIMATE ADEQUATE (NORMAL); POIKILOCYTOSIS 1+; POLYCHROMASIA 1+; TARGET CELLS 1+
--- NOTE | 2016-08-30 12:00 | PN ---
Progress Note, Physician Chief Complaint: feels better now that she was allowed clear liquids History of Present Illness: Patient with chronic anemia and admission for SBO is improving clinically and via Xray and started clear liquids today.No current abdominal pain. Hb had been over 9GM in the past is now below 8GM ; will order Fe, B12 and Folate levels. Just passed small amounts of gas. - Current Medication List Current Medications: Active Medications Heparin Sodium (Porcine) (Heparin -) 5,000 unit SQ BID [facility] Pantoprazole Sodium (Protonix 40mg Ivpb (Pre-Docked)) 100 mls @ 200 mls/hr IVPB DAILY [facility] Last Admin: 08/30/16 10:33 Dose: 200 mls/hr Sodium Chloride (Normal Saline -) 1,000 mls @ 50 mls/hr IV ASDIR [facility] Metoprolol Succinate (Toprol Xl -) 50 mg PO HS [facility] Ondansetron HCl (Zofran Injection) 4 mg IVPB Q6H PRN PRN Reason: NAUSEA - Objective Vital Signs: Vital Signs Temperature 98.1 F 08/30/16 10:00 Pulse Rate 79 08/30/16 10:00 Respiratory Rate 18 08/30/16 10:00 Blood Pressure 131/81 08/30/16 10:00 O2 Sat by Pulse Oximetry (%) 97 08/29/16 21:00 Constitutional: Yes: Calm, Pallor Cardiovascular: Yes: Regular Rate and Rhythm Respiratory: Yes: Diminished Gastrointestinal: Yes: Soft, Distention, Hyperactive Bowel Sounds, Tenderness ( slight tenderness RLQ) Genitourinary: No: Owen Present Edema: No Neurological: Yes: Alert, Oriented Labs: CBC, BMP 08/30/16 08:00 08/30/16 08:00 INR, PTT INR 1.09 (0.82-1.09) 08/28/16 03:11 - ....Imaging X-ray: Report Reviewed Problem List - Problems (1) SBO (small bowel obstruction) Assessment/Plan: Improved clinically and on Xray started liquid diet Code(s): K56.69 - OTHER INTESTINAL OBSTRUCTION (2) Hypertension Assessment/Plan: Will restart metoprolol and hold cozaar for now. Code(s): I10 - ESSENTIAL (PRIMARY) HYPERTENSION (3) Weight loss Assessment/Plan: Exacerbated by SBO. Code(s): R63.4 - ABNORMAL WEIGHT LOSS (4) Anemia Assessment/Plan: ?? Chronic but has fallen 2 Gm; to order F/u lab. Code(s): D64.9 - ANEMIA, UNSPECIFIED
--- NOTE | 2016-08-30 16:30 | PN ---
Progress Note, Physician History of Present Illness: stable improving gi function returning ng tube removed patient on liquid diet tolerating - Current Medication List Current Medications: Active Medications Heparin Sodium (Porcine) (Heparin -) 5,000 unit SQ BID [facility] Pantoprazole Sodium (Protonix 40mg Ivpb (Pre-Docked)) 100 mls @ 200 mls/hr IVPB DAILY [facility] Last Admin: 08/30/16 10:33 Dose: 200 mls/hr Sodium Chloride (Normal Saline -) 1,000 mls @ 50 mls/hr IV ASDIR [facility] Metoprolol Succinate (Toprol Xl -) 50 mg PO HS [facility] Ondansetron HCl (Zofran Injection) 4 mg IVPB Q6H PRN PRN Reason: NAUSEA - Objective Vital Signs: Vital Signs Temperature 97.8 F 08/30/16 14:53 Pulse Rate 85 08/30/16 14:53 Respiratory Rate 18 08/30/16 14:53 Blood Pressure 109/70 08/30/16 14:53 O2 Sat by Pulse Oximetry (%) 97 08/30/16 09:00 Constitutional: Yes: No Distress, Calm Cardiovascular: Yes: Regular Rate and Rhythm Respiratory: Yes: Regular, CTA Bilaterally Gastrointestinal: Yes: Normal Bowel Sounds, Soft Musculoskeletal: Yes: WNL Extremities: Yes: WNL Neurological: Yes: Alert, Oriented Psychiatric: Yes: Alert, Oriented Labs: CBC, BMP 08/30/16 08:00 08/30/16 08:00 INR, PTT INR 1.09 (0.82-1.09) 08/28/16 03:11 Assessment/Plan 1. Partial SBO 2. Dehydration 3. Leukocytosis 4. Anemia secondary to chronic illness 5. Hypertension 6 Chronic back pain plan continue with current mgmt continue monitoring
[2016-08-30] MEDS: METOPROLOL SUCCINATE 50 MG TAB.SR.24H (FP) PO SCH (21:38)
[2016-08-30] MEDS: HEPARIN NA (PORCINE) 5,000 UNITS/ML 1ML VIAL SQ SCH (21:38)
[2016-08-31 08:26] LABS: BASOPHIL 1.3 % (0-2.0); EOSINOPHIL 3.6 % (0-4.5); MCHC 30.9 g/dl (32.0-36.0); MEAN PLT VOLUME 9.1 fl (7.5-11.1); NEUTROPHILS 78.4 % (42.8-82.8); PLATELET COUNT 165 K/MM3 (134-434); RDW 20.2 % (11.6-15.6); WHITE BLOOD COUNT 4.5 K/mm3 (4.0-10.0)
[2016-08-31 09:00] LABS: CALCIUM 8.4 mg/dL (8.5-10.1)
[2016-08-31 09:40] LABS: CREATININE 0.5 mg/dL (0.55-1.02)
[2016-08-31 09:41] LABS: FERRITIN 816.954 ng/ml (6.9-282.5)
[2016-08-31] MEDS: HEPARIN NA (PORCINE) 5,000 UNITS/ML 1ML VIAL SQ SCH ×2 (10:05→13:36)
[2016-08-31] MEDS: PANTOPRAZOLE SODIUM 100 ML IVPB SCH (10:06)
--- NOTE | 2016-08-31 10:41 | PN ---
Progress Note (short form) - Note Progress Note: Attending Surgeon No c/o; tolerating diet and had a BM VSS AF Abdomen-benign; o/w negative IMP:resolved SBO PLAN: Reconsult prn.
--- NOTE | 2016-08-31 13:34 | PN ---
Progress Note (short form) - Note Progress Note: Patient with a fractured left wrist from slipping in hospital now has a Cast placed by [employer] ATT[employer]. Troubling factor is admission hemoglobin 9 Gm now 7.6 GM. Ferritin Bi2 and Folate normal and 1 stool guiac is negative. ?? needs Hematology MD.No unusual SOB but she is in bed most of the time. No abdominal pain today Not SOB at rest passing gas On Exam: Vital Signs Period Temp Pulse Resp BP Sys/Emerson Pulse Ox Last 24 Hr 97.6 F-97.8 F 65-85 18-18 109-150/64-78 97 Alert Chest: Decreased breath sound Abd: distended but soft Ext: no edema Left wrist cast in place Abnormal Lab Results 08/31/16 08/31/16 07:00 07:00 Hgb 7.8 L Hct 25.1 L MCV 68.0 L MCHC 30.9 L RDW 20.2 H Lymphocytes % 7.0 L D Anion Gap 7 L Creatinine 0.5 L D Calcium 8.4 L Ferritin 816.954 H Vitamin B12 1352 H Serum Folate 49 H IMP: Abd pain Improved SBO resolved Anemia??Chronic New Wrist Fracture COPD Plan: Repeat Lab PT ? Heme MD if HB doesn't improve. SNF Problem List - Problems (1) SBO (small bowel obstruction) Code(s): K56.69 - OTHER INTESTINAL OBSTRUCTION (2) Hypertension Code(s): I10 - ESSENTIAL (PRIMARY) HYPERTENSION (3) Weight loss Code(s): R63.4 - ABNORMAL WEIGHT LOSS (4) Anemia Code(s): D64.9 - ANEMIA, UNSPECIFIED
--- NOTE | 2016-08-31 13:48 | PN ---
Progress Note (short form) - Note Progress Note: NOTE: PREVIOUS NOTE FROM EARLIER TODAY IN ERROR. Corrected note: Patient now on puree diet at lunch for the first time and tolerated it well. No abdominal pain or cramping. Had small BM On Exam: Vital Signs Period Temp Pulse Resp BP Sys/Emerson Pulse Ox Last 24 Hr 97.6 F-97.8 F 65-85 18-18 109-150/64-78 97 Alert Chest Clear Cor reg Abd: slightly distended but soft Ext: No edema Abnormal Lab Results 08/31/16 08/31/16 07:00 07:00 Hgb 7.8 L Hct 25.1 L MCV 68.0 L MCHC 30.9 L RDW 20.2 H Lymphocytes % 7.0 L D Anion Gap 7 L Creatinine 0.5 L D Calcium 8.4 L Ferritin 816.954 H Vitamin B12 1352 H Serum Folate 49 H IMP: SBO resolved Chronic Anemia Hypertension Plan: Repeat CBC AM Serum YOEL ? D/C with outpatient F/U Dr. Duff if Hb stable. Problem List - Problems (1) SBO (small bowel obstruction) Code(s): K56.69 - OTHER INTESTINAL OBSTRUCTION (2) Hypertension Code(s): I10 - ESSENTIAL (PRIMARY) HYPERTENSION (3) Weight loss Code(s): R63.4 - ABNORMAL WEIGHT LOSS (4) Anemia Code(s): D64.9 - ANEMIA, UNSPECIFIED
--- NOTE | 2016-08-31 17:28 | PN ---
Progress Note, Physician History of Present Illness: doig well no issues tolerating food - Current Medication List Current Medications: Active Medications Heparin Sodium (Porcine) (Heparin -) 5,000 unit SQ BID [facility] Last Admin: 08/31/16 13:36 Dose: Not Given Pantoprazole Sodium (Protonix 40mg Ivpb (Pre-Docked)) 100 mls @ 200 mls/hr IVPB DAILY [facility] Last Admin: 08/31/16 10:06 Dose: 200 mls/hr Sodium Chloride (Normal Saline -) 1,000 mls @ 50 mls/hr IV ASDIR [facility] Last Admin: 08/30/16 23:06 Dose: 50 mls/hr Metoprolol Succinate (Toprol Xl -) 50 mg PO HS [facility] Last Admin: 08/30/16 21:38 Dose: 50 mg Ondansetron HCl (Zofran Injection) 4 mg IVPB Q6H PRN PRN Reason: NAUSEA - Objective Vital Signs: Vital Signs Temperature 98.3 F 08/31/16 13:57 Pulse Rate 73 08/31/16 13:57 Respiratory Rate 17 08/31/16 13:57 Blood Pressure 113/66 08/31/16 13:57 O2 Sat by Pulse Oximetry (%) 97 08/30/16 21:00 Constitutional: Yes: No Distress, Calm Cardiovascular: Yes: Regular Rate and Rhythm Respiratory: Yes: Regular, CTA Bilaterally Gastrointestinal: Yes: Normal Bowel Sounds, Soft Musculoskeletal: Yes: WNL Extremities: Yes: WNL Neurological: Yes: Alert, Oriented Psychiatric: Yes: Alert, Oriented Labs: CBC, BMP 08/31/16 07:00 08/31/16 07:00 INR, PTT INR 1.09 (0.82-1.09) 08/28/16 03:11 Assessment/Plan 1. Partial SBO 2. Dehydration 3. Leukocytosis 4. Anemia secondary to chronic illness 5. Hypertension 6 Chronic back pain plan continue with current mgmt continue monitoring
[2016-08-31] MEDS: SODIUM CHLORIDE 1,000 ML IV SCH (19:11)
[2016-08-31] MEDS: METOPROLOL SUCCINATE 50 MG TAB.SR.24H (FP) PO SCH (21:42)
[2016-09-01 08:07] LABS: CALCIUM 8.6 mg/dL (8.5-10.1)
[2016-09-01 08:13] LABS: CREATININE 0.4 mg/dL (0.55-1.02)
[2016-09-01] MEDS: PANTOPRAZOLE SODIUM 100 ML IVPB SCH (09:24)
[2016-09-01] MEDS: HEPARIN NA (PORCINE) 5,000 UNITS/ML 1ML VIAL SQ SCH (09:36)
[2016-09-01 10:43] LABS: MCH 21.1 pg (25.7-33.7); MCHC 30.8 g/dl (32.0-36.0); MEAN CELL VOLUME 68.4 fl (80-96); MEAN PLT VOLUME 10.2 fl (7.5-11.1); PLATELET COUNT 164 K/MM3 (134-434); RDW 20.5 % (11.6-15.6); WHITE BLOOD COUNT 4.1 K/mm3 (4.0-10.0)
--- NOTE | 2016-09-01 11:18 | DS ---
Physical Exam: SUBJECTIVE: Patient seen and examined OBJECTIVE: Vital Signs Period Temp Pulse Resp BP Sys/Emerson Pulse Ox Last 24 Hr 97.6 F-98.9 F 67-87 17-18 113-155/66-81 97 PHYSICAL EXAM GENERAL: The patient is awake, alert, and fully oriented, in no acute distress. HEAD: Normal with no signs of trauma. EYES: PERRL, extraocular movements intact, sclera anicteric, conjunctiva clear. ENT: Ears normal, nares patent, oropharynx clear without exudates, moist mucous membranes. NECK: Trachea midline, full range of motion, supple. LUNGS: Breath sounds equal, clear to auscultation bilaterally, no wheezes, no crackles, no accessory muscle use. HEART: Regular rate and rhythm, S1, S2 without murmur, rub or gallop. ABDOMEN: Soft, nontender, nondistended, normoactive bowel sounds, no guarding, no rebound, no hepatosplenomegaly, no masses. EXTREMITIES: 2+ pulses, warm, well-perfused, no edema. NEUROLOGICAL: Cranial nerves II through XII grossly intact. Normal speech, gait not observed. PSYCH: Normal mood, normal affect. SKIN: Warm, dry, normal turgor, no rashes or lesions noted. LABS Laboratory Results - last 24 hr 08/31/16 09/01/16 09/01/16 07:00 05:31 05:31 WBC 4.1 RBC 3.61 Hgb 7.6 L Hct 24.7 L MCV 68.4 L MCHC 30.8 L RDW 20.5 H Plt Count 164 MPV 10.2 D Neutrophils % Y Lymphocytes % Y Sodium 143 Potassium 4.3 Chloride 104 Carbon Dioxide 29 Anion Gap 10 BUN 14 Creatinine 0.4 L Random Glucose 77 Calcium 8.6 Iron 78 HOSPITAL COURSE: Date of Admission:08/28/16 Date of Discharge: 09/01/16 Discharge Summary Reason For Visit: SMALL BOWEL OBSTRUCTION Current Active Problems Anemia (Acute) SBO (small bowel obstruction) (Acute) Condition: Improved - Instructions Diet, Activity, Other Instructions: Continue low sodium diet and follow up with Dr. Duff within 3 -5 days after discharge. Please repeat CBC as an outpatient with Dr. Duff. Please return to the ER with any new or worsening symptoms. Referrals: Paco Duff MD [Primary Care Provider] - Disposition: HOME - Home Medications Comprehensive Discharge Medication List: Ambulatory Orders Losartan Potassium [Cozaar -] 50 mg PO DAILY #0 tablet 10/22/13 Metoprolol Succinate [Toprol XL -] 50 mg PO HS 08/14/14 Aspirin [Ecotrin] 81 mg PO DAILY 08/15/14 Furosemide [Lasix -] 20 mg PO DAILY 08/15/14 Pantoprazole Sodium [Protonix] 40 mg PO DAILY #30 tablet. 09/01/16 - Discharge Referral Referred to [facility] Med P.C.: No
[2016-09-01 12:44] VITALS: BP 144/82; PULSE 72; TEMP 97.5
--- NOTE | 2016-09-01 14:59 | PN ---
Progress Note, Physician History of Present Illness: doig well no issues tolerated diet - Objective Vital Signs: Vital Signs Temperature 97.5 F L 09/01/16 12:00 Pulse Rate 72 09/01/16 12:00 Respiratory Rate 85 H 09/01/16 12:00 Blood Pressure 144/82 09/01/16 12:00 O2 Sat by Pulse Oximetry (%) 98 09/01/16 09:00 Constitutional: Yes: No Distress, Calm Cardiovascular: Yes: Regular Rate and Rhythm Respiratory: Yes: Regular, CTA Bilaterally Gastrointestinal: Yes: Normal Bowel Sounds, Soft Musculoskeletal: Yes: WNL Extremities: Yes: WNL Integumentary: Yes: WNL Neurological: Yes: Alert, Oriented Psychiatric: Yes: Alert Labs: CBC, BMP 09/01/16 05:31 09/01/16 05:31 INR, PTT INR 1.09 (0.82-1.09) 08/28/16 03:11 Assessment/Plan 1. Partial SBO 2. Dehydration 3. Leukocytosis 4. Anemia secondary to chronic illness 5. Hypertension 6 Chronic back pain plan continue with current mgmt continue monitoring patients gi function returned rest as per primary
[2016-09-03 00:11] LABS: A/G RATIO 1.3 (0.7-1.7); ALBUMIN 3.3 g/dL (2.9-4.4); ALPHA-1-GLOBULIN 0.2 g/dL (0.0-0.4); BETA GLOBULIN 0.6 g/dL (0.7-1.3); GAMMA GLOBULIN 1.4 g/dL (0.4-1.8); GLOBULIN, TOTAL 2.7 g/dL (2.2-3.9); M-SPIKE Not Observed g/dL (Not Observed)
== END 2016-09-01 14:36 | disposition home or self-care (01) | DRG 389 ==
LOC: JER 02:19 → JERBED 06:10 → UNDOADMIN 06:16 → JERBED 06:16 → J5S 07:57
PROVIDERS: ADMIT Internal Medicine Geriatric Medicine; ATTEND Nurse Practitioner Family
PROC: 2W3BX2Z Immobilization of Left Upper Arm using Cast (ICD-10-PCS; principal; 2016-08-31)
DX: K56.69 Other intestinal obstruction (principal); Z68.1 Body mass index [BMI] 19.9 or less, adult; I10 Essential (primary) hypertension; M54.9 Dorsalgia, unspecified; E86.0 Dehydration; I25.10 Atherosclerotic heart disease of native coronary artery without angina pectoris; D72.828 Other elevated white blood cell count; R63.4 Abnormal weight loss; J44.9 Chronic obstructive pulmonary disease, unspecified; D63.8 Anemia in other chronic diseases classified elsewhere; M85.88 Other specified disorders of bone density and structure, other site; S62.102A Fracture of unspecified carpal bone, left wrist, initial encounter for closed fracture; W18.39XA Other fall on same level, initial encounter; Y93.89 Activity, other specified; Y92.238 Other place in hospital as the place of occurrence of the external cause; Z85.51 Personal history of malignant neoplasm of bladder
CPT/HCPCS: 36415; 71010-TC; 74020-TC; 74177-TC; 80048; 80053; 81003; 81015; 82272; 82607; 82728; 82746; 82784; 83540; 83690; 83735; 83880; 84155; 84165; 85025; 85610; 86334; 86850; 86900; 86901; 93005; 93010; 99285-25; J1644

== ENCOUNTER 2016-10-06 18:10 | Observation (INO) | payer OTHER ==
--- NOTE | 2016-10-06 18:21 | PDOC ---
[id number] No Limitations - History of Present Illness Initial Comments: 10/06/16 18:31 The patient is a 85 year old female with significant past medical history of hypertension, bladder CA, and chronic back pain s/p epidural treatment who presents to the ED with 2 days of lower abdominal pain. Patient was recently admitted to [facility] for partial SBO with no surgical intervention in 07/2016. Patient states that last week she had nausea and vomiting after eating and was seen by her PMD and was prompted to present to the ED if the symptoms persisted. Patient states that the symptoms resolved but today she reports lower abdominal pain that was constant but resolved after multiple loose bowel movements. Patient states that the abdominal pain is different than the one for her admission. Patient denies any nausea or vomiting today. The patient denies fever, chills, cough, SOB, chest pain, and palpitations. Allergies: NKDA Social History: No alcohol, tobacco, or drug use reported. Past Surgical History: hernia repair x2 PCP: Dr. Paco Duff <Gabbie Nickerson - Last Filed: 10/06/16 18:31> - General History Source: Patient, Old Records Exam Limitations: No Limitations <Sam Moreno - Last Filed: 10/14/16 07:37> - General Chief Complaint: Pain Stated Complaint: ABDOMINAL PAIN WITH DIARRHEA Time Seen by Provider: 10/06/16 18:11 Past History <Gabbie Nickerson - Last Filed: 10/06/16 18:31> - Past Medical History Anemia: Yes (mediterrean anemia) Asthma: No Cancer: No Cardiac Disorders: Yes CVA: No COPD: No CHF: No Dementia: No Diabetes: No GI Disorders: Yes (SBO) Disorders: Yes HTN: Yes Hypercholesterolemia: No Liver Disease: No Seizures: No Thyroid Disease: No - Surgical History Abdominal Surgery: Yes (HERNIA, bilateral) Appendectomy: No Cardiac Surgery: No Cholecystectomy: No Lung Surgery: No Neurologic Surgery: No Orthopedic Surgery: No - Psycho/Social/Smoking Cessation Hx Anxiety: No Suicidal Ideation: No Smoking History: Never smoked Have you smoked in the past 12 months: No If you are a former smoker, when did you quit?: 1970 Information on smoking cessation initiated: No Hx Alcohol Use: No Drug/Substance Use Hx: No Substance Use Type: None Hx Substance Use Treatment: No <Sam Moreno - Last Filed: 10/14/16 07:37> - Past Medical History Allergies/Adverse Reactions: Allergies Allergy/AdvReac Type Severity Reaction Status Date / Time No Known Drug Allergies Allergy Verified 10/06/16 18:13 Home Medications: Ambulatory Orders Losartan Potassium [Cozaar -] 50 mg PO DAILY #0 tablet 10/22/13 Metoprolol Succinate [Toprol XL -] 50 mg PO HS 08/14/14 Aspirin [Ecotrin] 81 mg PO DAILY 08/15/14 Furosemide [Lasix -] 20 mg PO DAILY 08/15/14 Cyclosporine [Restasis] 1 each OP HS 10/06/16 Propylene Glycol/Peg 400 [Systane Ultra 0.4-0.3% Eye Drp] 1 drop OP HS 10/06/16 Timolol 0.5% [Timoptic 0.5%] 1 drop OU DAILY 10/06/16 Travoprost [Travatan Z] 1 drop OU HS 10/06/16 Docusate Sodium [Colace -] 100 mg PO BID cap 10/08/16 Polyethylene Glycol 3350 [Miralax 119 gm Btl -] 17 gm PO DAILY #1 bottle Review of Systems - Review of Systems Able to Perform ROS?: Yes Comments:: 10/06/16 18:31 GENERAL/CONSTITUTIONAL: No fever or chills. No weakness. HEAD, EYES, EARS, NOSE AND THROAT: No change in vision. No ear pain or discharge. No sore throat. CARDIOVASCULAR: No chest pain or shortness of breath. RESPIRATORY: No cough, wheezing, or hemoptysis. GASTROINTESTINAL: (+)abdominal pain, (+)loose stools. No nausea, vomiting, diarrhea or constipation. GENITOURINARY: No dysuria, frequency, or change in urination. MUSCULOSKELETAL: No joint or muscle swelling or pain. No neck or back pain. SKIN: No rash NEUROLOGIC: No headache, vertigo, loss of consciousness, or change in strength/ sensation. ENDOCRINE: No increased thirst. No abnormal weight change. HEMATOLOGIC/LYMPHATIC: No anemia, easy bleeding, or history of blood clots. ALLERGIC/IMMUNOLOGIC: No hives or skin allergy. <Gabbie Nickerson - Last Filed: 10/06/16 18:31> *Physical Exam - Vital Signs Last Vital Signs Temp Pulse Resp BP Pulse Ox 98.4 F 74 17 149/66 98 10/06/16 18:11 10/06/16 18:11 10/06/16 18:11 10/06/16 18:11 10/06/16 18:11 - Physical Exam Comments: 10/06/16 18:32 GENERAL: Awake, alert, and fully oriented, in no acute distress HEAD: No signs of trauma EYES: PERRLA, EOMI, sclera anicteric, conjunctiva clear ENT: Auricles normal inspection, hearing grossly normal, nares patent, oropharynx clear without exudates. Moist mucosa NECK: Normal ROM, supple, no lymphadenopathy, JVD, or masses LUNGS: Breath sounds equal, clear to auscultation bilaterally. No wheezes, and no crackles HEART: Regular rate and rhythm, normal S1 and S2, no murmurs, rubs or gallops ABDOMEN: (+)abdominal distention, (+) tympanic to percussion, (+)discomfort at left lower suprapubic area and right lower quadrant. Soft, normoactive bowel sounds. No guarding, no rebound. EXTREMITIES: Normal range of motion, no edema. No clubbing or cyanosis. No cords, erythema, or tenderness NEUROLOGICAL: Cranial nerves II through XII grossly intact. Normal speech, normal gait SKIN: Warm, Dry, normal turgor, no rashes or lesions noted. <Gabbie Nickerson - Last Filed: 10/06/16 18:31> - Vital Signs Last Vital Signs Temp Pulse Resp BP Pulse Ox 98.4 F 74 17 149/66 98 10/06/16 18:11 10/06/16 18:11 10/06/16 18:11 10/06/16 18:11 10/06/16 18:11 <Sam Moreno - Last Filed: 10/14/16 07:37> Heart Score/ECG Review #1 ECG reviewed & interpreted by me at: 19:15 10/06/16 19:18 NSR 64 with 1st degree AV block, LBBB, QTC 472 msec, neg scarbossa <Sam Moreno - Last Filed: 10/14/16 07:37> ED Treatment Course - LABORATORY CBC & Chemistry Diagram: 10/08/16 07:25 10/08/16 07:25 <Sam Moreno - Last Filed: 10/14/16 07:37> Medical Decision Making - Medical Decision Making 10/06/16 18:25 A portion of this note was documented by scribe services under my direction. I have reviewed the details of the note, within reason, and agree with the documentation with the following case summary and management plan written by me. Patient treated in the ED. Nursing notes are reviewed and incorporated into the medical decision-making. Vital signs reviewed. Peripheral IV access obtained by the nurse, laboratory studies are drawn and sent, reviewed and interpreted by myself. Vital Signs Temp Pulse Resp BP Pulse Ox 98.4 F 74 17 149/66 98 10/06/16 18:11 10/06/16 18:11 10/06/16 18:11 10/06/16 18:11 10/06/16 18:11 85 year old feamel with Past medical history of hypertension, bladder CA, chronic back pain status post epidural treatment, history of hernia presents with abdominal pain. The patient reports that several days ago, started feeling nauseous and vomiting after eating. She started noticing constant lower abdominal pain and now intermittent loose stooling. Denies fevers or chills. As of note, pt was admitted in July 2016 for a bowel obstruction that resolved without surgery. Differential includes colitis, partial bowel obstruction, acute gastroenteritis. We'll obtain labs, obtain CAT scan the abdomen pelvis. IV fluids and reassess. 10/06/16 19:13 Case signed out to [facility] ED attending Dr. Bhatt for further management and disposition. <Sam Moreno - Last Filed: 10/14/16 07:37> *DC/Admit/Observation/Transfer - Attestations Scribe Attestion: 10/06/16 18:32 Documentation prepared by MIA Anderson, acting as paramedical aide for Sam Moreno MD. <Gabbie Nickerson - Last Filed: 10/06/16 18:31> <Sam Moreno - Last Filed: 10/14/16 07:37> Diagnosis at time of Disposition: Abdominal pain, Constipation, Hernia - Discharge Dispostion Disposition: HOME Condition at time of disposition: Good - Referrals
[2016-10-06] MEDS ORDERED: SODIUM CHLORIDE 1,000 ML IV SCH (18:30)
[2016-10-06 18:57] LABS: MCH 21.1 pg (25.7-33.7)
[2016-10-06 19:08] LABS: MCHC 30.5 g/dl (32.0-36.0); MEAN CELL VOLUME 69.3 fl (80-96); MEAN PLT VOLUME 8.7 fl (7.5-11.1); PLATELET COUNT 182 K/MM3 (134-434); RDW 19.8 % (11.6-15.6); WHITE BLOOD COUNT 4.9 K/mm3 (4.0-10.8)
[2016-10-06 19:14] LABS: ACTIVATED PTT 30.8 SECONDS (24.0-38.9)
[2016-10-06 19:17] LABS: CPK(DFH) 49 IU/L (26-140)
[2016-10-06 19:18] LABS: ALBUMIN 4.5 g/dl (3.5-5.0); ALK PHOS 60 U/L (32-92); ANION GAP 9 (8-16); BILIRUBIN,TOTAL 1.4 mg/dl (0.2-1.0); CALCIUM 9.7 mg/dl (8.4-10.2); CO2 27 mmol/L (22-28); CREATININE 0.7 mg/dl (0.6-1.3); GLUCOSE,RANDOM 92 mg/dl (74-106); INR 1.06 (0.82-1.09); PROTHROMBIN TIME (PATIENT) 11.8 SEC (10.2-13.0); SGOT/AST 22 U/L (10-42); SGPT/ALT 13 U/L (10-40); TOT PROT 7.3 g/dl (6.4-8.3)
[2016-10-06 19:32] LABS: TROPONIN I (DFP) < 0.03 ng/ml (0.03-0.50)
[2016-10-06 19:45] LABS: URINE APPEARANCE Clear; URINE BILIRUBIN Negative (NEGATIVE); URINE BLOOD Negative (NEGATIVE); URINE GLUCOSE (UA) Negative (NEGATIVE); URINE KETONE Negative (NEGATIVE); URINE LEUK ESTERASE Negative (NEGATIVE); URINE NITRITE Negative (NEGATIVE); URINE PROTEIN Negative (NEGATIVE); URINE UROBILINOGEN 0.2 E.U/dl (0.2-1.0)
[2016-10-06 19:46] LABS: URINE COLOR YELLOW
[2016-10-06 20:13] LABS: ANISOCYTOSIS 2+; HYPOCHROMIA 2+
[2016-10-06 20:14] LABS: MICROCYTOSIS 2+
[2016-10-06 20:15] LABS: TARGET CELLS 1+
--- NOTE | 2016-10-06 20:49 | PDOC ---
*Physical Exam - Vital Signs Last Vital Signs Temp Pulse Resp BP Pulse Ox 98.4 F 74 17 149/66 98 10/06/16 18:11 10/06/16 18:11 10/06/16 18:11 10/06/16 18:11 10/06/16 18:11 ED Treatment Course - LABORATORY CBC & Chemistry Diagram: 10/06/16 18:30 10/06/16 18:30 - ADDITIONAL ORDERS Additional order review: Laboratory Results 10/06/16 10/06/16 10/06/16 19:20 18:30 18:30 INR PTT (Actin FS) Sodium Potassium Chloride Carbon Dioxide Anion Gap BUN Creatinine Creat Clearance w eGFR Random Glucose Lactic Acid 1.191 Calcium Total Bilirubin AST ALT Alkaline Phosphatase Creatine Kinase 49 Troponin I < 0.03 L Total Protein Albumin Lipase Urine Color Yellow Urine Appearance Clear Urine pH 6.0 Ur Specific [place] <= 1.005 Urine Protein Negative Urine Glucose (UA) Negative Urine Ketones Negative Urine Blood Negative Urine Nitrite Negative Urine Bilirubin Negative Urine Urobilinogen 0.2 e.u/dl Ur Leukocyte Esterase Negative 10/06/16 10/06/16 18:30 18:30 INR 1.06 PTT (Actin FS) 30.8 Sodium 137 Potassium 4.0 Chloride 101 Carbon Dioxide 27 Anion Gap 9 BUN 27 H Creatinine 0.7 Creat Clearance w eGFR > 60 Random Glucose 92 Lactic Acid Calcium 9.7 Total Bilirubin 1.4 H AST 22 ALT 13 Alkaline Phosphatase 60 Creatine Kinase Troponin I Total Protein 7.3 Albumin 4.5 Lipase 38 Urine Color Urine Appearance Urine pH Ur Specific [place] Urine Protein Urine Glucose (UA) Urine Ketones Urine Blood Urine Nitrite Urine Bilirubin Urine Urobilinogen Ur Leukocyte Esterase 10/06/16 18:30 RBC 4.09 MCV 69.3 L MCHC 30.5 L RDW 19.8 H MPV 8.7 Neutrophils % 80.0 Lymphocytes % 18.0 Monocytes % 2.0 L Medical Decision Making - Medical Decision Making 10/06/16 23:[address] Chung. OBS for now. *DC/Admit/Observation/Transfer Diagnosis at time of Disposition: Hernia Abdominal pain Qualifiers: Abdominal location: generalized Qualified Code(s): R10.84 - Generalized abdominal pain Constipation Qualifiers: Constipation type: unspecified constipation type Qualified Code(s): K59.00 - Constipation, unspecified - Discharge Dispostion Condition at time of disposition: Improved Admit: Yes - Referrals Referrals: Paco Duff MD [Primary Care Provider] - - Patient Instructions - Post Discharge Activity - Attestations Physician Attestion: 10/06/16 20:49 I, Dr. Arnol Bhatt, attest that this document has been prepared under my direction and personally reviewed by me in its entirety. I further attest, that it accurately reflects all work, treatment, procedures and medical decision -making performed by me.
[2016-10-07 01:02] VITALS: BMI 17.9
[2016-10-07 08:35] LABS: ANION GAP 6 (8-16); CALCIUM 8.9 mg/dl (8.4-10.2); CO2 26 mmol/L (22-28); CREATININE 0.6 mg/dl (0.6-1.3); GLUCOSE,RANDOM 84 mg/dl (74-106); MAGNESIUM 2.1 mg/dL (1.8-2.4); PHOSPHOROUS 3.8 mg/dl (2.5-4.6)
--- NOTE | 2016-10-07 09:02 | EKG ---
Test Reason : Blood Pressure : / mmHG Vent. Rate : 064 BPM Atrial Rate : 064 BPM P-R Int : 218 ms QRS Dur : 136 ms QT Int : 458 ms P-R-T Axes : 048 -14 124 degrees QTc Int : 472 ms SINUS RHYTHM WITH 1ST DEGREE A-V BLOCK LEFT BUNDLE BRANCH BLOCK WHEN COMPARED WITH ECG OF 28-AUG-2016 06:23, T WAVE INVERSION NO LONGER EVIDENT IN INFERIOR LEADS Confirmed by MD NANDA, MICHELLE ([id number]) on 10/07/2016 9:02:46 AM Referred By: Mita CHEN Confirmed By:MICHELLE VEE MD
[2016-10-07 09:25] LABS: MCH 21.3 pg (25.7-33.7); MCHC 30.7 g/dl (32.0-36.0); MEAN CELL VOLUME 69.3 fl (80-96); MEAN PLT VOLUME 9.1 fl (7.5-11.1); PLATELET COUNT 158 K/MM3 (134-434)
--- NOTE | 2016-10-07 09:59 | HP ---
Admitting History and Physical - Primary Care Physician PCP: Paco Duff - Admission Chief Complaint: I feel fine now History of Present Illness: Ms Mcdonnell is a pleasant 85 year old female who comes in with abdominal pain and diarrhea. She had an episode of SBO in July that resolved. Over the past two days she has experienced nausea, vomiting, abdominal pain, and diarrhea. She says she was unable to eat anything secondary to the pain. She was having a lot of diarrhea, she says it was mainly watery but it unsure if there was formed stool. She denies fevers, chills, lightheadedness, passing out, chest pain, shortness of breath, difficulty or pain on urination, or swelling. Today she says she is feeling fine. She has not had a bowel movement today. History Source: Patient Limitations to Obtaining History: No Limitations - Past Medical History Cardiovascular: Yes: HTN, Other (ASHD) ...: No Heme/Onc: Yes: Anemia (thalassemia) Endocrine: Yes: Osteopenia - Past Surgical History Additional Past Surgical History: bladder tumor resection - Smoking History Smoking history: Never smoked Have you smoked in the past 12 months: No If you are a former smoker, when did you quit?: 1970 - Alcohol/Substance Use Hx Alcohol Use: No History of Substance Use: reports: None - Social History Usual Living Arrangement: Yes: With Spouse ADL: Independent History of Recent Travel: No Home Medications - Allergies Allergies/Adverse Reactions: Allergies Allergy/AdvReac Type Severity Reaction Status Date / Time No Known Drug Allergies Allergy Verified 10/06/16 18:13 - Home Medications Home Medications: Ambulatory Orders Losartan Potassium [Cozaar -] 50 mg PO DAILY #0 tablet 10/22/13 Metoprolol Succinate [Toprol XL -] 50 mg PO HS 08/14/14 Aspirin [Ecotrin] 81 mg PO DAILY 08/15/14 Furosemide [Lasix -] 20 mg PO DAILY 08/15/14 Cyclosporine [Restasis] 1 each OP HS 10/06/16 Propylene Glycol/Peg 400 [Systane Ultra 0.4-0.3% Eye Drp] 1 drop OP HS 10/06/16 Timolol 0.5% [Timoptic 0.5%] 1 drop OU DAILY 10/06/16 Travoprost [Travatan Z] 1 drop OU HS 10/06/16 Family Disease History - Family Disease History Family History: Unremarkable Review of Systems Findings/Remarks: Full review of systems obtained, as per HPI and otherwise negative Physical Examination Vital Signs: Vital Signs Temperature 98.2 F 10/07/16 05:54 Pulse Rate 70 10/07/16 05:54 Respiratory Rate 19 10/07/16 05:54 Blood Pressure 121/52 10/07/16 05:54 O2 Sat by Pulse Oximetry (%) 97 10/07/16 07:49 Constitutional: Yes: Well Nourished, No Distress, Calm Eyes: Yes: Conjunctiva Clear, EOM Intact HENT: Yes: Atraumatic, Normocephalic Cardiovascular: Yes: Regular Rate and Rhythm. No: Gallop, Murmur, Rub Respiratory: Yes: Regular, CTA Bilaterally. No: Rales, Rhonchi, Wheezes Gastrointestinal: Yes: Normal Bowel Sounds, Soft, Distention. No: Tenderness Extremities: Yes: WNL Edema: No Labs: CBC, BMP 10/07/16 08:05 10/07/16 08:05 Imaging - Results Chest X-ray: Report Reviewed, Image Reviewed Cat Scan: Report Reviewed, Image Reviewed Problem List - Problems (1) Constipation Assessment/Plan: -patient with constipation and overflow diarrhea -start on miralax and colace -will give dose of magnesium citrate as well -case d/w surgery -hernia not obstructed -if tolerates diet and has significant bowel movement, can discharge later today Code(s): K59.00 - CONSTIPATION, UNSPECIFIED Qualifiers: Constipation type: unspecified constipation type Qualified Code(s): K59.00 - Constipation, unspecified (2) Anemia Assessment/Plan: -drop from admission but at baseline -suspect secondary to hydration -monitor, at baseline Code(s): D64.9 - ANEMIA, UNSPECIFIED (3) Hypertension Assessment/Plan: -well controlled -continue home regimen Code(s): I10 - ESSENTIAL (PRIMARY) HYPERTENSION
--- NOTE | 2016-10-07 10:04 | CONSULT ---
Consult Consult Specialty:: surgery Reason for Consultation:: constipation/obturator hernia - History of Present Illness Chief Complaint: abd pain History of Present Illness: pt is a 85F with lower abd pain with N/V/D for last couple days. came to ER and CT shows constipation with R obturator hernia with no evidence of SBO. no leukocytosis or fever pt currently has been having diarrhea and feels better. no abd pain currently. - Past Medical History Cardio/Vascular: Yes: HTN, Other (ASHD) ...: No Endocrine: Yes: Osteopenia - Past Surgical History Past Surgical History: Yes: Hernia Repair (b/l repair of inguinal hernia by Dr. Morris in 2005 or 1995. ) Additional Surgical History: bladder surgery (TURBT?) - Alcohol/Substance Use Hx Alcohol Use: No - Smoking History Smoking history: Never smoked Have you smoked in the past 12 months: No If you are a former smoker, when did you quit?: 1970 Home Medications - Allergies Allergies/Adverse Reactions: Allergies Allergy/AdvReac Type Severity Reaction Status Date / Time No Known Drug Allergies Allergy Verified 10/06/16 18:13 - Home Medications Home Medications: Ambulatory Orders Losartan Potassium [Cozaar -] 50 mg PO DAILY #0 tablet 10/22/13 Metoprolol Succinate [Toprol XL -] 50 mg PO HS 08/14/14 Aspirin [Ecotrin] 81 mg PO DAILY 08/15/14 Furosemide [Lasix -] 20 mg PO DAILY 08/15/14 Cyclosporine [Restasis] 1 each OP HS 10/06/16 Propylene Glycol/Peg 400 [Systane Ultra 0.4-0.3% Eye Drp] 1 drop OP HS 10/06/16 Timolol 0.5% [Timoptic 0.5%] 1 drop OU DAILY 10/06/16 Travoprost [Travatan Z] 1 drop OU HS 10/06/16 Review of Systems - Review of Systems Constitutional: denies: Chills, Fever Eyes: denies: Blind Spots, Blurred Vision HENT: denies: Difficult Swallowing, Ear Discharge Neck: denies: Decreased ROM, Lumps Cardiovascular: denies: Chest Pain, Edema Respiratory: denies: Cough, Exercise Intolerance Gastrointestinal: reports: Abdominal Pain, Diarrhea, Nausea, Vomiting Genitourinary: denies: Burning, Discharge Breasts: denies: Lumps, Pain Musculoskeletal: denies: Back Pain, Crepitus Integumentary: denies: Blister, Bruising Neurological: denies: Change in LOC, Change in Speech Endocrine: denies: Excessive Sweating, Flushing Hematology/Lymphatic: denies: Easily Bruised, Excessive Bleeding Psychiatric: denies: Altered Sleep Pattern, Anxiety Physical Exam Vital Signs: Vital Signs Temperature 98.2 F 10/07/16 05:54 Pulse Rate 70 10/07/16 05:54 Respiratory Rate 19 10/07/16 05:54 Blood Pressure 121/52 10/07/16 05:54 O2 Sat by Pulse Oximetry (%) 97 10/07/16 07:49 Constitutional: Yes: No Distress, Calm Eyes: Yes: Conjunctiva Clear, EOM Intact HENT: Yes: Atraumatic, Normocephalic Neck: Yes: Supple, Trachea Midline Cardiovascular: Yes: Regular Rate and Rhythm Respiratory: Yes: Regular, CTA Bilaterally Gastrointestinal: Yes: Soft, Other (palpable mesh in R inguinal region.). No: Distention, Tenderness ...Rectal Exam: Yes: Deferred Renal/: No: CVA Tenderness - Left, CVA Tenderness - Right Musculoskeletal: No: Joint Stiffness, Joint Swelling Extremities: No: Calf Tenderness, Erythema Integumentary: No: Erythema, Rash Neurological: Yes: Alert, Oriented Psychiatric: Yes: Alert, Oriented Labs: CBC, BMP 10/07/16 08:05 10/07/16 08:05 Imaging - Results Cat Scan: Report Reviewed, Image Reviewed Assessment/Plan assessment admited for gastroenteritis vs constipiation? obturator vs femoral hernia plan d/w pt pathology of obturator/femoral hernia reviewed chart. patient was here approx 1+ month ago for SBO with imaging that said R femoral hernia. this CT says R obturator hernia. I recommended elective surgery for this patient to correct such a condition as she can get into trouble because of higher risk strangulation with this pathology. I offered her laparotomy approach given uncertainty with femoral vs obturator and also because of prior anterior approach. she tells me she is moving to [place] this week. I told her to think about surgery. she can f/u with me as outpt if she wants it repaired. otherwise she should find someone shortly after relocation where she has more family support.
[2016-10-07] MEDS ORDERED: MAGNESIUM CITRATE 300 ML BOTTLE PO ONE (10:30)
[2016-10-07] MEDS ORDERED: PT OWN MED DRAWER 7, Y5N ONE ×3 (10:35→21:04)
[2016-10-07] MEDS: POLYETHYLENE GLYCOL 3350 119 GM BTL PO SCH ×2 (10:45→10:59)
[2016-10-07] MEDS: TIMOLOL 0.5% OPHTHALMIC SOL 5 ML BOTTLE OU SCH (10:58)
[2016-10-07] MEDS: ENOXAPARIN NA (PORCINE) 40 MG/0.4 ML DISP.SYRIN SQ SCH (10:59)
[2016-10-07] MEDS: LOSARTAN POTASSIUM 50 MG TABLET (FP) PO SCH (10:59)
[2016-10-07] MEDS: FUROSEMIDE 20 MG TABLET (FP) PO SCH (10:59)
[2016-10-07] MEDS: DOCUSATE SODIUM 100 MG CAPSULE (FP) PO SCH ×2 (10:59→11:00)
[2016-10-07] MEDS: ASPIRIN COATED 81 MG TABLET.EC PO SCH (10:59)
[2016-10-07 14:14] LABS: ANISOCYTOSIS 2+; HYPOCHROMIA 3+
[2016-10-07 14:15] LABS: MICROCYTOSIS 2+
[2016-10-07] MEDS ORDERED: PEG OP SCH (22:00)
[2016-10-07] MEDS ORDERED: PATIENT'S OWN MEDICATION (NON-FORMULARY) (Cyclosporine [Restasis] 1 EACH) OP SCH (22:00)
[2016-10-07] MEDS ORDERED: LATANOPROST 0.005% OPHTH SOLN 2.5ML BOTTLE OU SCH (22:00)
[2016-10-07] MEDS ORDERED: [UNRECOGNIZED DRUG - OTHER] OP SCH (22:00)
[2016-10-07] MEDS ORDERED: METOPROLOL SUCCINATE 50 MG TAB.SR.24H (FP) PO SCH (22:00)
[2016-10-07] MEDS ORDERED: PATIENT'S OWN MEDICATION (NON-FORMULARY) (Travoprost [Travatan Z] 1 DROP) OU SCH (22:00)
[2016-10-07] MEDS ORDERED: PROPYLENE GLYCOL OP SCH (22:00)
[2016-10-08 06:31] VITALS: BP 128/62; PULSE 68; TEMP 97.8
[2016-10-08 08:46] LABS: ANION GAP 7 (8-16); CO2 26 mmol/L (22-28); CREATININE 0.6 mg/dl (0.6-1.3); GLUCOSE,RANDOM 83 mg/dl (74-106); MAGNESIUM 2.2 mg/dL (1.8-2.4); PHOSPHOROUS 3.1 mg/dl (2.5-4.6)
[2016-10-08 09:27] LABS: WHITE BLOOD COUNT 3.6 K/mm3 (4.0-10.8)
[2016-10-08] MEDS ORDERED: PT OWN MED DRAWER 7, Y5N ONE (09:30)
[2016-10-08 09:31] LABS: MEAN PLT VOLUME 8.8 fl (7.5-11.1); RDW 20.1 % (11.6-15.6)
--- NOTE | 2016-10-08 09:50 | DS ---
Physical Examination Vital Signs: Vital Signs Temperature 97.8 F 10/08/16 06:00 Pulse Rate 68 10/08/16 06:00 Respiratory Rate 20 10/08/16 06:00 Blood Pressure 128/62 10/08/16 06:00 O2 Sat by Pulse Oximetry (%) 90 L 10/08/16 06:00 Constitutional: Yes: Well Nourished, No Distress, Calm Cardiovascular: Yes: Regular Rate and Rhythm. No: Gallop, Murmur, Rub Respiratory: Yes: Regular, CTA Bilaterally. No: Rales, Rhonchi, Wheezes Gastrointestinal: Yes: Normal Bowel Sounds, Soft. No: Distention, Tenderness Extremities: Yes: WNL Edema: No Labs: CBC, BMP 10/08/16 07:25 Discharge Summary Reason For Visit: ABDOMINAL PAIN, CONSTIPATION, HERNIA Current Active Problems Abdominal pain (Acute) Constipation (Acute) Hernia (Acute) Hospital Course: (1) Constipation Code(s): K59.00 - CONSTIPATION, UNSPECIFIED Qualifiers: Constipation type: unspecified constipation type Qualified Code(s): K59.00 - Constipation, unspecified (2) Anemia Code(s): D64.9 - ANEMIA, UNSPECIFIED (3) Hypertension Code(s): I10 - ESSENTIAL (PRIMARY) HYPERTENSION Ms Mcdonnell is a pleasant 85 year old female who came in with abdominal pain secondary to severe constipation. She was admitted under observation. She was placed on stool softeners. Since she has a history of hernia, she was evaluated by surgery. Surgery recommended outpatient follow up and repair. Considering the amount of constipation seen on the CT scan, she was given magnesium citrate and monitored. She had a significant amount of bowel movements but her pain resolved. She is now tolerating a diet without issues. She is recommended to stay on stool softeners. She is safe for discharge home. She is moving to [place] later this week and is encouraged to find a primary care physician in her new community. 33 minutes spent in preparation of this discharge Condition: Good - Instructions Diet, Activity, Other Instructions: resume previous diet and activity. Referrals: Paco Duff MD [Primary Care Provider] - Disposition: HOME - Home Medications Comprehensive Discharge Medication List: Ambulatory Orders Losartan Potassium [Cozaar -] 50 mg PO DAILY #0 tablet 10/22/13 Metoprolol Succinate [Toprol XL -] 50 mg PO HS 08/14/14 Aspirin [Ecotrin] 81 mg PO DAILY 08/15/14 Furosemide [Lasix -] 20 mg PO DAILY 08/15/14 Cyclosporine [Restasis] 1 each OP HS 10/06/16 Propylene Glycol/Peg 400 [Systane Ultra 0.4-0.3% Eye Drp] 1 drop OP HS 10/06/16 Timolol 0.5% [Timoptic 0.5%] 1 drop OU DAILY 10/06/16 Travoprost [Travatan Z] 1 drop OU HS 10/06/16 Docusate Sodium [Colace -] 100 mg PO BID cap 10/08/16 Polyethylene Glycol 3350 [Miralax 119 gm Btl -] 17 gm PO DAILY #1 bottle
[2016-10-08] MEDS: FUROSEMIDE 20 MG TABLET (FP) PO SCH (09:59)
[2016-10-08] MEDS: ASPIRIN COATED 81 MG TABLET.EC PO SCH (09:59)
[2016-10-08] MEDS: POLYETHYLENE GLYCOL 3350 119 GM BTL PO SCH (09:59)
[2016-10-08] MEDS: DOCUSATE SODIUM 100 MG CAPSULE (FP) PO SCH (09:59)
[2016-10-08] MEDS: LOSARTAN POTASSIUM 50 MG TABLET (FP) PO SCH (09:59)
[2016-10-08] MEDS: ENOXAPARIN NA (PORCINE) 40 MG/0.4 ML DISP.SYRIN SQ SCH (10:00)
[2016-10-08] MEDS: TIMOLOL 0.5% OPHTHALMIC SOL 5 ML BOTTLE OU SCH (10:00)
[2016-10-08 10:05] LABS: MCH 21.5 pg (25.7-33.7); MCHC 30.9 g/dl (32.0-36.0); MEAN CELL VOLUME 69.7 fl (80-96); PLATELET COUNT 148 K/MM3 (134-434)
[2016-10-08 15:01] LABS: ANISOCYTOSIS 2+; HYPOCHROMIA 1+; MICROCYTOSIS 1+; OVALOCYTES 1+; PLATELET COMMENT2 NO CLOTTING DETECTED; PLATELET ESTIMATE SLT DECREASED (NORMAL); TARGET CELLS 1+; TEAR DROP CELLS 1+
== END 2016-10-08 12:41 | disposition home or self-care (01) ==
LOC: FER 18:10 → FM/S 23:51
PROVIDERS: ADMIT Internal Medicine; ATTEND Internal Medicine
PROC: 3E0337Z Introduction of Electrolytic and Water Balance Substance into Peripheral Vein, Percutaneous Approach (ICD-10-PCS; principal; 2016-10-06)
DX: K59.00 Constipation, unspecified (principal); D56.9 Thalassemia, unspecified; I10 Essential (primary) hypertension; I25.10 Atherosclerotic heart disease of native coronary artery without angina pectoris; Z85.51 Personal history of malignant neoplasm of bladder; M54.9 Dorsalgia, unspecified; G89.29 Other chronic pain; Z87.19 Personal history of other diseases of the digestive system; Z79.82 Long term (current) use of aspirin; R10.84 Generalized abdominal pain
CPT/HCPCS: 36415; 71010-TC; 74177-TC; 80048; 80053; 81003; 82550; 83605; 83690; 83735; 84100; 84484; 85025; 85610; 85730; 93005; 94010; 99284-25; G0378